=== PATIENT | female | born 1970 | race Caucasian/White ===

== ENCOUNTER → 2017-04-16 | Outpatient (CLI) | payer OTHER ==
[~2017-04-16] MED LIST: ALBUTEROL17 GM INH; ALIGN PROBIOTIC; ALPRAZOLAM ER1 MG PO; BACTRIM DS TABL1 TA1 PO; BENTYL20 M1 PO; BUSPAR15 M1 PO; CITALOPRAM HBR40 M1; CLINDAMYCIN HC300 MG PO; LEXAPRO PO; LOMOTIL WHITE2.5 M1 PO; PERCOCET 10/3251 TAB PO; SPIRIVA18 MCG INH; VENTOLIN5 MG/ML INH; VICODIN 5/1 TAB 5/50 PO; WALPHED PO; XTAMPZA ER18 MG PO
== END | disposition home or self-care (01) ==
LOC: CLAB 16:38
DX: R19.7 Diarrhea, unspecified (principal); Z86.19 Personal history of other infectious and parasitic diseases
CPT/HCPCS: 87493

== ENCOUNTER → 2017-06-28 | Outpatient (CLI) | payer OTHER ==
--- NOTE | ~2017-06-28 | CR181 ---
[facility] A Service of [facility] RADIOLOGY TEXT RESULTS PATIENT: CLARY GARCIA LOCATION: [facility] : 68 UNIT #: [id number] AGE: [address]: Nickie Staton MD SEX: F ORDER DR: [id number] [place], [place] [address] [id number] O MR#: [id number] Acc #: [id number] NAME: CLARY GARCIA : 1970 SEX: F STUDY DATE/TIME: 06/28/2017 14:09 UNIT: [facility] ROOM: STUDY DESCRIPTION: CR Lumbar Spine 2 or 3 Views Attending Physician: Nickie Staton M.D. Referring Physician: Nickie Staton M.D. Ordering Physician: Nickie Staton M.D. Primary Care Physician: Paulina Alvarado M.D. MEDICAL IMAGING REPORT This report is preliminary unless electronic signature is present EXAM Lumbar spine 06/28/2017 HISTORY 46-year-old female with low back pain radiating into right leg for 7 years, worsening over the last 1-2 months. No specific injury. COMPARISON None. FINDINGS 3 views of the lumbar spine demonstrate no acute fracture or subluxation. Vertebral body heights and alignment are normally maintained. Disc spaces are within expected limits. Mild multilevel facet degeneration. Sacrum and SI joints intact. Atherosclerotic calcification of the abdominal aorta. IMPRESSION 1. No acute lumbar spine injury. 2. Mild multilevel facet arthropathy. 3. Atherosclerotic calcification of the abdominal. Dictated by... Ari Williamson M.D. THIS IS AN ELECTRONICALLY VERIFIED REPORT Ari Williamson M.D. at 06/29/2017 4:37 PM RED/stephen TD: 06/29/2017 11:40 JOB #: [id number] [facility] A Service [facility] RADIOLOGY TEXT RESULTS PATIENT: CLARY GARCIA LOCATION: [facility] : 68 UNIT #: [id number] AGE: [address]: Nickie Staton MD SEX: F ORDER DR: MEDICAL IMAGING REPORT Page 1 of 1 COPY
== END | disposition home or self-care (01) ==
LOC: CRAD 13:35
DX: M54.5 Low back pain (principal); M46.96 Unspecified inflammatory spondylopathy, lumbar region; I70.0 Atherosclerosis of aorta; Z91.81 History of falling
CPT/HCPCS: 72100